=== PATIENT | male | born 1940 | race Caucasian/White ===

== ENCOUNTER 2016-12-27 23:32 | Inpatient (IN) | payer OTHER ==
[~2016-12-27] VITALS: Ht 165.1 cm; Wt 77.3 kg
[2016-12-27] MEDS ORDERED: SOD CHLORIDE 0.9% 500 ML IV STA (23:35)
[2016-12-27 23:43] VITALS: Ht 165.1 cm; Wt 77.3 kg
--- NOTE | 2016-12-27 23:58 | RADRPT ---
PROCEDURE: CT Brain without contrast. CLINICAL INDICATION: Code stroke with left-sided symptoms TECHNIQUE: A CT of the brain was performed on a multidetector CT scanner utilizing axial sections from the skull base through the vertex without contrast. Images were reviewed on a high-resolution [employer] workstation. Exam CTDI = 39.64 mGy and the DLP = 713.51 mGy-cm. One or more of the following dose reduction techniques were used: - Automated exposure control. - Adjustment of the mA and/or kV according to patient size. - Use of iterative reconstruction technique. COMPARISON: None available FINDINGS: Mild diffuse cerebral and cerebellar atrophy is present. There is proportionate dilatation of the v entricular system and sulci in a symmetric fashion. There is prominence of the extraaxial spaces sec ondary to atrophy. There is no evidence of intracranial hemorrhage, mass effect or midline shift. N o abnormal intra-axial or extra-axial fluid collections are seen. The sanchez/white matter differentia tion is preserved. Mild patchy diffuse deep white matter microangiopathic ischemic change is seen. Mucosal thickening in bilateral maxillary, sphenoid, frontal and ethmoid sinuses consistent with chr onic sinusitis. No skull fracture seen. Vascular calcifications are identified. There is the appea jossie of increased density in an approximate 1.2 mm long segment of the proximal right middle cerebr al artery suspicious for acute thrombus. IMPRESSION: Suspicious for acute thrombus in right middle cerebral artery. No acute bleed. Critical result discu ssed with Dr. Wells at 11:51 p.m. on 12/27/2016. RPTAT: HJES .Sam Cruz MD, MD Date Time Electronically viewed and signed by .Sam Cruz MD, MD on 12/27/2016 23:57 .S/
[2016-12-28] VITALS (15 sets, daily range): BP systolic 144–192; BP diastolic 57–88; PULSE 99–121; RESP 15–24; TEMP 97.6
[2016-12-28 00:14] LABS: ADD SCAN DIFF NO
[2016-12-28 00:19] LABS: BASOPHILS % 0.3 % (0.0-2.0); EOSINOPHILS # 0.2 10^3/ul (0.0-0.5); EOSINOPHILS % 1.7 % (0.0-7.0); HEMATOCRIT 46.2 % (42.0-52.0); HEMOGLOBIN 15.3 g/dl (14.0-18.0); LYMPHOCYTES # 2.8 10^3/ul (0.8-2.9); LYMPHOCYTES % 26.1 % (15.0-51.0); MEAN CORPUSCULAR HEMOGLOBIN 29.9 pg (29.0-33.0); MEAN CORPUSCULAR HGB CONC 33.1 g/dl (32.0-37.0); MEAN CORPUSCULAR VOLUME 90.4 fl (82.0-101.0); MEAN PLATELET VOLUME 11.3 fl (7.4-10.4); MONOCYTE # 0.6 10^3/ul (0.3-0.9); NEUTROPHILS % 65.6 % (39.0-77.0); PLATELET COUNT 301 10^3/UL (140-415); RED BLOOD COUNT 5.11 10^6/ul (4.70-6.10); WHITE BLOOD COUNT 10.6 10^3/ul (4.8-10.8)
[2016-12-28] MEDS ORDERED: SOD CHLORIDE 0.9% 100 ML ONE (00:19)
[2016-12-28] MEDS ORDERED: IOHEXOL 300MG/ML 150 ML BTL ONE (00:19)
--- NOTE | 2016-12-28 00:20 | RADRPT ---
PROCEDURE: XR Chest. CLINICAL INDICATION: Possible Stroke TECHNIQUE: Single frontal chest x-ray. COMPARISON: None. FINDINGS: There is minimal prominence of the lung interstitium likely minimal chronic changes. The heart is no t enlarged. Degenerative changes in thoracic spine and right acromioclavicular joint. ECG leads pr ojected over the chest. Linear atelectasis/fibrosis at lung bases. The patient is mildly rotated to the left. IMPRESSION: 1. There is no acute cardiopulmonary process. RPTAT: HJES .Sam Cruz MD, MD Date Time Electronically viewed and signed by .Sam Cruz MD, MD on 12/28/2016 00:20 .S/
[2016-12-28 00:28] LABS: INR 0.94; PROTIME 12.6 Sec (12.2-14.2)
[2016-12-28 00:29] LABS: PARTIAL THROMBOPLASTIN TIME 30.3 Sec (25.0-35.0)
[2016-12-28] MEDS ORDERED: hydrALAzine 20 MG INJ IV ONE ×2 (00:30)
[2016-12-28] MEDS ORDERED: SOD CHLORIDE 0.9% 50 ML IV ONE (00:30)
[2016-12-28] MEDS ORDERED: ALTEPLASE 100 MG INJ IV* ONE (00:30)
[2016-12-28] MEDS ORDERED: ALTEPLASE (tPA) 1 MG/ML BOLUS SYG IV* ONE (00:30)
[2016-12-28 00:33] LABS: ALBUMIN 4.6 g/dl (3.3-4.9); CHLORIDE 101 mmol/L (97-110)
[2016-12-28 00:34] LABS: POTASSIUM 4.2 mmol/L (3.5-5.1); SODIUM 142 mmol/L (135-144)
[2016-12-28 00:36] LABS: ALBUMIN/GLOBULIN RATIO 1.31; ANION GAP 17 (8-16); ASPARTATE AMINO TRANSFERASE 34 IU/L (15-46); BILIRUBIN,INDIRECT 0.2 mg/dl (0-1.1); BILIRUBIN,TOTAL 0.2 mg/dl (0.2-1.3); CARBON DIOXIDE 28 mmol/L (21-31); CREATININE 0.66 mg/dl (0.61-1.24); TOTAL PROTEIN 8.1 g/dl (6.1-8.1)
[2016-12-28 00:37] LABS: ALANINE AMINOTRANSFERASE 31 IU/L (13-69); ALKALINE PHOSPHATASE 87 IU/L (42-121); BLOOD UREA NITROGEN 15 mg/dl (7-20); CALCIUM 9.6 mg/dl (8.4-10.2); GLUCOSE 124 mg/dl (70-220)
[2016-12-28 01:00] LABS: TROPONIN-I < 0.012 ng/ml (0.00-0.12)
[2016-12-28] MEDS ORDERED: ONDANSETRON 4 MG INJ IV STA ×2 (01:02→01:21)
[2016-12-28] MEDS ORDERED: ONDANSETRON 4 MG INJ ONE (01:03)
[2016-12-28] MEDS ORDERED: METOCLOPRAMIDE 10 MG INJ IV ONE (01:30)
[2016-12-28 02:55] LABS: ADD UMIC YES; URINE BILIRUBIN (Dip) NEGATIVE (NEGATIVE); URINE BLOOD (Dip) NEGATIVE (NEGATIVE); URINE COLOR YELLOW (YELLOW); URINE GLUCOSE (Dip) NEGATIVE (NEGATIVE); URINE KETONES (Dip) 15 (NEGATIVE); URINE LEUKOCYTE ESTERASE (Dip) NEGATIVE (NEGATIVE); URINE NITRITE (Dip) NEGATIVE (NEGATIVE); URINE TOTAL PROTEIN (Dip) TRACE (NEGATIVE); URINE UROBILINOGEN (Dip) 0.2 E.U./dL (0.1-1.0)
--- NOTE | 2016-12-28 03:05 | EN ---
Date/Time of Note Date/Time of Note DATE: 12/28/16 TIME: 03:[address] angiogram head and neck. His been delayed multiple times. The radiology technicians were made aware both by myself and the ER staff Court multiple times Time sensitive matter. According to andreea, axial views and reformatted views were not sent to the radiologist. Again the technologist was made aware of this and was told to call directly HANNAH BOLANOS Dec 28, 2016 03:05
[2016-12-28 03:10] LABS: SQUAMOUS EPITHELIAL CELL,UR MODERATE; URINE RBCS 0-2 /HPF (0)
[2016-12-28 03:11] LABS: BACTERIA,URINE OCCASIONAL; MUCUS,URINE FEW
[2016-12-28] MEDS ORDERED: LABETALOL HCL 20MG INJ IV ONE (03:30)
[2016-12-28 03:37] LABS: BARBITURATES Negative (NEGATIVE); BENZODIAZEPINES Negative (NEGATIVE); CANNABINOIDS Negative (NEGATIVE); COCAINE Negative (NEGATIVE); OPIATES Negative (NEGATIVE)
--- NOTE | 2016-12-28 04:42 | RADRPT ---
PROCEDURE: CTA head and neck. CLINICAL INDICATION: Acute right MCA stroke TECHNIQUE: Thin section spiral CT images through the vasculature of the head and neck during injec tion of 185 cc of Omnipaque-300 contrast material. The study had to be repeated once due to an adeq uate bolus on the initial attempt. Some contrast leakage also occurred during the initial study and the total dose delivered is likely slightly less than stated. Coronal and sagittal as well as maxim al intensity projection reformations were obtained. The images were reviewed on a PACS workstation. Stenoses were measured using NASCET criteria where appropriate. The administered radiation dose is C TDI 42.07, DLP 2070.87. One or more of the following dose reduction techniques were used: automated exposure control, adjustment of the mA and/or kV according to patient size, or use of iterative rec onstruction technique. COMPARISON: No prior studies are available for comparison. FINDINGS: CTA Neck: There is atherosclerotic change of the aortic arch. There is intimal medial thickening of both common carotid arteries with moderate predominately calcified plaque of both carotid bulbs. T here is complete occlusion of the right internal carotid artery at its origin with slight retrograde filling at the level of the cavernous carotid artery. There is stenosis of the proximal left ICA w ith diameter as little as 1.7 mm. Reference ICA diameter is 3.4 mm. This is consistent with a 50% stenosis. The mid and distal left internal carotid artery are slightly small in caliber but patent. There is atherosclerotic change of the intracranial left ICA with multiple areas of stenosis less than 50%. The vertebral arteries are patent and codominant. Small right thyroid nodule or cyst. Sc arring of the lung apices. Degenerative change of the spine. CTA Head: As mentioned above, the intracranial right internal carotid artery is occluded with recon stitution in the cavernous portion. There is then thrombus seen in the distal - most right ICA with extension into the right M1 segment which is consistent with the hyperdense thrombus seen on CT. A small amount of flow is seen in the distal right MCA branches, likely collateral. The anterior cer ebral arteries, left MCA, and the posterior cerebral arteries are patent. No definite aneurysm is s een. There is a suggestion of some sulcal effacement of the right hemisphere suggesting evolving MC A infarct. Ventricular dilatation is again seen. There is mucoperiosteal thickening and fluid thro ughout the paranasal sinuses, particular the ethmoids. IMPRESSION: Acute thrombosis of the right MCA with evolving infarct. Complete occlusion of the right internal c arotid artery which may be acute or older. Diffuse atherosclerotic change. 50% stenosis of the left ICA. Results were called to Kali Bae at 12/28/2016 4:27 AM RPTAT: HLBE Maggy Farah, Physician Date Time Electronically viewed and signed by Maggy Farah, Physician on 12/28/2016 04:42 LE/
--- NOTE | 2016-12-28 05:11 | ERA ---
ER Documentation Chief Complaint Date/Time DATE: 12/28/16 TIME: 05:08 Chief Complaint sudden onset weakness to left side, facial drop to left side of face. HPI This is a 76 year male with sudden onset of weakness to his left side with facial the left side of his face approximately 10 minutes prior to arrival here at [facility]. EMS said the patient fell out of bed complaints. Last seen normal 20 minutes prior to calling 911. Upon arrival code stroke was immediately called the patient was immediately taken to CT. Telemetry neurology was also consulted immediately. ROS All systems reviewed and are negative except as per history of present illness. PMhx/Soc Medical and Surgical Hx: pt denies Medical Hx, pt denies Surgical Hx Hx Alcohol Use: Yes (everyday) Hx Substance Use: No Hx Tobacco Use: No Smoking Status: Never smoker Physical Exam Vitals Vital Signs Date Time Temp Pulse Resp B/P Pulse Ox O2 Delivery O2 Flow Rate FiO2 12/28/16 04:30 98 19 154/67 98 12/28/16 04:00 104 23 166/67 94 12/28/16 03:31 100 2.0 12/28/16 03:30 126 26 186/87 98 12/28/16 03:01 137 21 218/91 97 12/28/16 02:43 134 25 168/96 99 12/28/16 02:21 98.1 12/28/16 02:13 122 27 163/63 99 12/28/16 01:58 120 24 163/66 100 12/28/16 01:43 138 25 182/80 100 12/28/16 01:28 120 23 179/62 100 12/28/16 01:13 117 23 167/72 99 12/28/16 00:58 124 27 173/98 94 12/28/16 00:43 115 27 157/91 99 12/28/16 00:33 120 16 175/92 100 Nasal Cannula 12/28/16 00:28 120 26 175/92 100 12/28/16 00:25 135 16 174/72 100 Nasal Cannula 3.0 12/28/16 00:21 141 23 194/83 100 Nasal Cannula 12/28/16 00:15 135 26 198/93 100 Nasal Cannula 12/28/16 00:11 117 25 240/94 100 Room Air 12/27/16 23:59 106 18 227/88 100 Nasal Cannula 12/27/16 23:43 Nasal Cannula 2 12/27/16 23:43 104 18 235/99 100 12/27/16 23:43 Nasal Cannula 2.0 Physical Exam Const: [] Head: Atraumatic Eyes: Normal Conjunctiva ENT: Normal External Ears, Nose and Mouth. Neck: Full range of motion..~ No meningismus. Resp: Clear to auscultation bilaterally Cardio: Regular rate and rhythm, no murmurs Abd: Soft, non tender, non distended. Normal bowel sounds Skin: No petechiae or rashes Back: No midline or flank tenderness Ext: No cyanosis, or edema Neur: Awake and alert Psych: Normal Mood and Affect Result Diagram: 12/27/16 2337 12/27/16 2337 Results 24 hrs Laboratory Tests Test 12/27/16 23:37 12/28/16 01:21 12/28/16 02:59 Activated Partial Thromboplast Time 30.3Sec Alanine Aminotransferase (ALT/SGPT) 31IU/L Albumin 4.6g/dl Albumin/Globulin Ratio 1.31 Alkaline Phosphatase 87IU/L Anion Gap 17 Aspartate Amino Transf (AST/SGOT) 34IU/L Basophils # 0.010^3/ul Basophils % 0.3% Blood Urea Nitrogen 15mg/dl Calcium Level 9.6mg/dl Carbon Dioxide Level 28mmol/L Chloride Level 101mmol/L Creatinine 0.66mg/dl Direct Bilirubin 0.00mg/dl Eosinophils # 0.210^3/ul Eosinophils % 1.7% Globulin 3.50g/dl Glucose Level 124mg/dl Hematocrit 46.2% Hemoglobin 15.3g/dl Hemoglobin A1c 5.8% INR International Normalized Ratio 0.94 Indirect Bilirubin 0.2mg/dl Lymphocytes # 2.810^3/ul Lymphocytes % 26.1% Mean Corpuscular Hemoglobin 29.9pg Mean Corpuscular Hemoglobin Concent 33.1g/dl Mean Corpuscular Volume 90.4fl Mean Platelet Volume 11.3fl Monocytes # 0.610^3/ul Monocytes % 6.0% Neutrophils # 7.010^3/ul Neutrophils % 65.6% Nucleated Red Blood Cells # 0.010^3/ul Nucleated Red Blood Cells % 0.0/100WBC Platelet Count 66003^3/UL Potassium Level 4.2mmol/L Prothrombin Time 12.6Sec Prothrombin Time Ratio 1.0 Red Blood Count 5.1110^6/ul Red Cell Distribution Width 12.0% Sodium Level 142mmol/L Total Bilirubin 0.2mg/dl Total Protein 8.1g/dl Troponin I < 0.012ng/ml White Blood Count 10.610^3/ul Urine Amphetamines Screen Negative Urine Bacteria OCCASIONAL Urine Barbiturates Negative Urine Benzodiazepines Screen Negative Urine Bilirubin NEGATIVE Urine Cannabinoids Negative Urine Clarity CLEAR Urine Cocaine Screen Negative Urine Color YELLOW Urine Glucose NEGATIVE% Urine Hemoglobin NEGATIVE Urine Ketones 15 Urine Leukocyte Esterase NEGATIVE Urine Microscopic RBC 0-2/HPF Urine Microscopic WBC 0-2/HPF Urine Mucus FEW Urine Nitrite NEGATIVE Urine Opiates Screen Negative Urine Specific [place] 1.025 Urine Squamous Epithelial Cells MODERATE Urine Total Protein TRACE Urine Urobilinogen 0.2 E.U./dL Urine pH 6.0 Bedside Glucose 158mg/dL Current Medications Medications (Trade) Dose Ordered Sig/Thad Route PRN Reason Start Time Stop Time Status Last Admin Dose Admin Sodium Chloride (NS) 500 ml @ 500 mls/hr Q1H STAT IV 12/27/16 23:35 12/28/16 00:34 DC 12/27/16 23:44 Alteplase, Recombinant (Activase) 7 mg BOLUS OVER 1 MIN ONCE IV* 12/28/16 00:30 12/28/16 00:31 DC 12/28/16 00:26 Alteplase, Recombinant 62.6 mg 62.6 mg ISCHEMIC STROKE ONCE IV* 12/28/16 00:30 12/28/16 00:31 DC 12/28/16 00:27 Sodium Chloride (NS) 50 ml @ 0 mls/hr FLUSH AFTER TPA ONCE IV 12/28/16 00:30 12/28/16 00:31 DC 12/28/16 01:25 Hydralazine HCl (Apresoline) 20 mg ONCE ONCE IV 12/28/16 00:30 12/28/16 00:31 DC 12/28/16 00:08 Hydralazine HCl 20 mg 20 mg ONCE ONCE IV 12/28/16 00:30 12/28/16 00:31 DC 12/28/16 00:28 Sodium Chloride (NS) 100 ml @ ud STK-MED ONCE .ROUTE 12/28/16 00:19 12/28/16 00:20 DC 12/28/16 00:19 Iohexol (Omnipaque 300mg/ ml) 150 ml STK-MED ONCE .ROUTE 12/28/16 00:19 12/28/16 00:20 DC 12/28/16 00:19 Ondansetron HCl (Zofran Inj) 4 mg ONCE STAT IV 12/28/16 01:02 12/28/16 01:03 DC 12/28/16 01:06 Ondansetron HCl (Zofran Inj) 4 mg STK-MED ONCE .ROUTE 12/28/16 01:03 12/28/16 01:04 DC Metoclopramide HCl (Reglan) 10 mg ONCE ONCE IV 12/28/16 01:30 12/28/16 01:31 DC 12/28/16 01:25 Ondansetron HCl (Zofran Inj) 4 mg ONCE STAT IV 12/28/16 01:21 12/28/16 01:22 DC 12/28/16 01:22 Labetalol HCl (Labetalol) 20 mg ONCE ONCE IV 12/28/16 03:30 12/28/16 03:31 DC 12/28/16 03:09 Procedures/MDM Emergency Department was continued. After code stroke was called telemetry neurology evaluated the patient. Recommended TPA. TPA infusion started immediately. Recommended CT angios with the head of the neck. Multiple delays were noted in this CT angios is a patient was actively vomiting. Patient's did get CT angiogram but contrast was injected through intravenous access and have making and a nondiagnostic CT. A second CT was ordered and completed. Showed evolving right MCA stroke. Interventional neurology at [facility] called. Recommended no intervention given the fact this evolving stroke. Recommended medical therapy. Patient to will be admitted to intensive care unit to the hospitalist. EKG: Rate/Rhythm: Normal Sinus Rhythm QRS, ST, T-waves: No changes consistent w/ acute ischemia Impression: No evidence of ischemia or arrhythmia Chest X-ray 1V Interpreted by me: Soft Tissue: No acute abnormalities Bones: No acute abnormalities Mediastinum/Cardiac Silhouette/Lungs: No acute abnormalities Patient's neurologic symptoms are concerning for acute TIA/stroke, infectious, or metabolic cause and will require inpatient workup and continuous monitoring. Further w/u for will be deferred to the inpatient team. Neuro Critical Care: Critical Care Time: 75 minutes minutes Treatments/Evaluations: Continuous neurologic and cardiovascular monitoring for deterioration of neurologic function and complications, while obtaining immediate neurologic imaging. Considerations made for TPA and invasive therapy with discussions with family. TPA Criteria Assessment: Patient eligible for TPA. Started on bolus and then continuous infusion. Improvement noted post TPA infusion Accepting Care Team: Current data and ongoing care discussed. Time: 5 AM Primary Provider: Hospitalist Consulting: [[place]] Outstanding Data: none Departure Diagnosis: Primary Impression: Acute CVA (cerebrovascular accident) Condition: Critical HANNAH BOLANOS Dec 28, 2016 05:11
[2016-12-28] MEDS ORDERED: NACL 0.9% 3 ML SYG IV SCH (05:30)
[2016-12-28] MEDS ORDERED: morphine 2 MG INJ IV PRN (05:30)
[2016-12-28] MEDS ORDERED: MAGNESIUM HYDROXIDE 30ML CUP PO PRN (05:30)
[2016-12-28] MEDS ORDERED: ONDANSETRON 4 MG INJ IV PRN (05:30)
[2016-12-28] MEDS ORDERED: HYDROCODONE/APAP (5/325) TAB PO PRN (05:30)
[2016-12-28] MEDS ORDERED: ALBUTEROL/IPRATROPIUM (NEB) 3 ML AMP HHN PRN (05:30)
[2016-12-28] MEDS ORDERED: DOCUSATE SODIUM 100 MG CAP PO PRN (05:30)
[2016-12-28] MEDS ORDERED: NA PHOSPHATE/BIPHOS 133 ML ENEMA PR PRN (05:30)
[2016-12-28] MEDS ORDERED: LORAZEPAM 2 MG INJ IV PRN (05:30)
[2016-12-28] MEDS ORDERED: NITROGLYCERIN (SL) 0.4 MG TAB SL PRN (05:30)
[2016-12-28] MEDS ORDERED: ACETAMINOPHEN 325 MG TAB PO PRN ×2 (05:30)
[2016-12-28] MEDS: ATORVASTATIN 80 MG TAB PO SCH ×2 (06:30→20:53)
[2016-12-28] MEDS: hydrALAzine 20 MG INJ IV PRN ×3 (06:46→20:48)
[2016-12-28 07:25] LABS: ADD UMIC YES; URINE BILIRUBIN (Dip) NEGATIVE (NEGATIVE); URINE BLOOD (Dip) TRACE (NEGATIVE); URINE COLOR LT. YELLOW (YELLOW); URINE KETONES (Dip) TRACE (NEGATIVE); URINE LEUKOCYTE ESTERASE (Dip) NEGATIVE (NEGATIVE); URINE NITRITE (Dip) NEGATIVE (NEGATIVE); URINE TOTAL PROTEIN (Dip) NEGATIVE (NEGATIVE); URINE UROBILINOGEN (Dip) 0.2 E.U./dL (0.1-1.0)
--- NOTE | 2016-12-28 07:25 | HP ---
DATE OF ADMISSION: 12/27/2016 CHIEF COMPLAINT: Left-sided weakness and elevated blood pressure. HISTORY OF PRESENT ILLNESS: A 76-year-old male with past medical history of essential hypertension who presented with sudden onset weakness to the left side and also facial droop to the left side of his face. Symptoms occurred about 10 to 20 minutes prior to admission. EMS brought him to the ER. Teleneurologist was called immediately and the patient was considered to be inside the window as th ere were signs of acute stroke and he was given t-PA. He had a brain CT scan performed as well that showed an acute thrombus in the right middle cerebral artery thrombosis. No acute bleed. He has h ad a neck CTA performed as well that showed acute complete occlusion of the right internal carotid a rtery and a 50% stenosis of the left ICA. There was an attempt by the ER staff to try to transfer t he patient to [facility] for a thrombectomy but he was considered be outside the window for that. No feve rs or chills. No upper or lower GI bleeding. PAST MEDICAL HISTORY: As stated above. ALLERGIES: UNKNOWN. HOME MEDICATIONS: None. PAST SURGICAL HISTORY: None. FAMILY HISTORY: Noncontributory. SOCIAL HISTORY: Negative for smoking or IV drug abuse. He does drink scotch daily for many years. PHYSICAL EXAMINATION VITAL SIGNS: Blood pressure 227/88, presently it is 163/73, respirations 19 to 24, saturating at 97 % on 2 liters nasal cannula. Afebrile. GENERAL: The patient is lying in bed, alert, in mild distress. at the bedside. HEENT: He has got left-sided facial droop. Pupils otherwise equal, round, react to light. Extraoc ular muscles intact. NECK: Supple, no thyromegaly. LUNGS: Clear to auscultation bilaterally. CARDIOVASCULAR: S1, S2 heard. No rubs or gallops. ABDOMEN: Soft, nontender, nondistended. Normal bowel sounds. No rebound or guarding. MUSCULOSKELETAL: No lower extremity edema bilaterally. NEUROLOGIC: 0/5 strength in left upper and left lower extremities. There is left-sided facial droo p. Right side has 5/5 strength in right upper and right lower extremities. He has got some tremors on the right side as well. Appears somewhat agitated but is alert. Gait was not assessed. LABORATORY DATA: CBC is completely normal. Comprehensive metabolic panel is normal. Troponin is n egative x1. A1c is 5.8. U-tox is negative. UA negative nitrites, negative leukocyte esterase. Co ags are negative. Again, we mentioned the head CT and neck CTA results above as mentioned in the HP I. chest x-ray: No acute cardiopulmonary process. ASSESSMENT AND PLAN: A 76-year-old male coming in with acute left-sided symptoms with right middle cerebral artery stroke and right carotid 100% occlusion, status post t-PA. 1. Left-sided weakness symptoms secondary to acute stroke. Again, the patient will be transferred to Intensive Care Unit. He is on t-PA. Will put him on hydralazine 10 mg IV q.4 hours p.r.n. systo lic greater than 160, ideally want keep the blood pressure less than the 160 range. Will get neurol ogy consult as well. Continue neuro checks every 4 hours, high dose Lipitor. No aspirin for at terra st the first 24 hours after t-PA administered so no aspirin for now. Get physical therapy and occup ational therapy consults and speech therapy consult as well. 2. Hypertension. Again, see #1 for blood pressure control. If need be, we will start Cardene drip , right now the blood pressure seems to be under control with the p.r.n. hydralazine. 3. Gastrointestinal prophylaxis. H2 kathe. 4. Deep venous thrombosis prophylaxis. Again, sequential depression devices. No anticoagulants si nce he has already gotten t-PA and monitor for any signs of any bleeding, there are none presently. Again, physical therapy and occupational therapy consults. TSH, A1c and lipid panel. Dictated By: BRITTANY PRICE Conf#: [id number] DID#: [id number]
[2016-12-28] MEDS ORDERED: GLUCOSE GEL 15 GRAM TUBE BUCCAL PRN (07:30)
[2016-12-28] MEDS ORDERED: GLUCOSE GEL 15 GRAM TUBE PO PRN ×2 (07:30)
[2016-12-28] MEDS ORDERED: GLUCAGON 1 MG INJ IM PRN (07:30)
[2016-12-28] MEDS ORDERED: DEXTROSE 50% 50 ML SYRINGE IV PRN ×2 (07:30)
[2016-12-28 07:38] LABS: URINE RBCS 0-2 /HPF (0)
[2016-12-28] MEDS: DOCUSATE SODIUM 100 MG CAP PO SCH ×2 (08:32→20:53)
[2016-12-28] MEDS ORDERED: DOCUSATE SODIUM 100 MG CAP PO SCH (09:00)
[2016-12-28] MEDS: INSULIN ASPART [NOVOLOG] 3 ML PEN SC SCH ×4 (09:00→20:53)
--- NOTE | 2016-12-28 10:20 | RADRPT ---
PROCEDURE: MRI Brain without contrast. CLINICAL INDICATION: Stroke. Right middle cerebral artery territory infarct. TECHNIQUE: Routine MRI of the brain performed without intravenous contrast. COMPARISON: CT brain 12/27/2016, 12/28/2016 FINDINGS: Acute infarction is evident throughout the right middle cerebral artery territory corresponding to t he areas of lack of enhancement seen on the prior CT angiogram of the intracranial circulation. Aff ected territories include the right frontal lobe, right parietal lobe, right temporal lobe, and righ t basal ganglia. There is mild mass effect within the ischemic territory which minimally effaces th e involved sulci without midline shift or herniation. No evidence of intracranial hemorrhage. No evidence for remote blood degradation products. Mild central parenchymal volume loss is evident. The ventricles and sulci are concordant with parenchymal volume. Nonspecific small scattered areas of T2 and FLAIR signal hyperintensity measuring a few millimeters are seen in the supratentorial white matter most commonly due to chronic mild microvascular ischemic changes. Differential considerations include sequelae of migraines; prior parenchymal injury from i nfectious or inflammatory/demyelinating process; vasculopathy. Flow voids of the right middle cerebral artery territory are absent. Remaining central flow voids a re present suggesting patency; better evaluated on the recent CT angiogram of the intracranial circu lation. Minimal mucosal thickening of the paranasal sinuses. Minimal fluid within the left mastoid air cells. The calvarium is intact. The visualized extracranial soft tissues appear within normal limits. IMPRESSION: Acute ischemic changes involving the entire right middle cerebral artery territory compatible with t he distribution of infarction seen on the recent CT angiogram of the intracranial circulation. Within the non infarcted areas of brain are nonspecific small scattered areas of T2 and FLAIR signal hyperintensity measuring a few millimeters are seen in the supratentorial white matter most commonl y due to chronic mild microvascular ischemic changes. Differential considerations include sequelae o f migraines; prior parenchymal injury from infectious or inflammatory/demyelinating process; vasculo yonathan. RPTAT: AADD .Kali Jara MD, MD Date Time Electronically viewed and signed by .Kali Jara MD, on 12/28/2016 10:19 .B/
[2016-12-28] MEDS: FAMOTIDINE 20 MG INJ IV SCH ×2 (11:10→20:48)
--- NOTE | 2016-12-28 13:04 | CONS ---
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 Mechanism likely atheroembolic. -ICU admission planned maintain vital signs post IV tPA protocol SBP< 180/105, prefer labetalol prn for elevated blood pressures if HR permits -continue to hold antiplatelets, anticoagulation up to 24 hours -repeat [address] to evaluate for sign of hemorrhage, if no ICH may initiate ASA 300 mg HI and and pharmacologic DVT ppx if passes speech/swallow then ASA 81 mg -official speech/swallow evaluation -ECHO with bubble study -Lipitor 80 mg qhs when able to tolerate PO, pending results of LDL if LDL>100 qualifies for high intensity statin -MRI Brain results reviewed large Right MCA stroke involving superior and inferior division discussed results with and daughter at bedside -PT/OT -SCD -continue to monitor on telemetry for signs of atrial fibrillation -will continue to follow, please notify me for any change in neurologic status Problems: Consultation Date/Type/Reason Admit Date/Time 12/27/16 Date of Consultation: Dec 28, 2016 Type of Consultation: Neurology Reason for Consultation Right MCA stroke Referring Provider: BRITTANY RAMOS Hx of Present Illness 76 year old right handed [place] male with history of essential hypertension with poor medical follow up, previous history of smoking quit 20 years ago presenting with left sided hemiparesis. Patient had gone to bed in usual state of health around 9 pm last night, his heard noises coming from the room at 10:30pm, she found him in bed stating he needed to use the bathroom and slid out of bed with left sided hemiparesis. He presented within a 3 hour tPA window , with no contraindications for IV tPA, administered per recommend of tele neurologist. CTA Head/Neck showed Right carotid occlusion 100% with Right M1 occlusion, was out of window for thrombectomy planned for ICU admission. 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 independent in all AD[employer] driving Alcohol Use: other (daily 2 glasses of scotch) Smoking Status: Former smoker Exam/Review of Systems Vital Signs Vitals Vital Signs Date Time Temp Pulse Resp B/P Pulse Ox O2 Delivery O2 Flow Rate FiO2 12/28/16 12:00 96 20 152/69 97 12/28/16 03:31 2.0 12/28/16 02:21 98.1 12/28/16 00:33 Nasal Cannula Intake and Output 12/27/16 12/27/16 12/28/16 15:00 23:00 07:00 Output Total 400 ml Balance -400 ml Exam arousable to verbal stimuli responds verbally unable to open his eyes on command eyelid opening apraxia drowsy and requires repeat stimulation oriented to self, hospital and family members inattentive and unable to follow commands reliably CN: HEIDI eyes forced open unable to cross fully to left left UMN facial droop Motor: spontaneous movements right arm and leg anti-gravity intact strength 5/5 Left arm with increased tone and flexor posturing, no withdrawal to noxious Left leg with spontaneous anti-gravity movement 3/5 localizes to noxious stimuli applied to left arm and leg Sensory: localizes to noxious Reflexes: 2+ UE, LE left toe upgoing Results Result Diagram: 12/27/16 2337 12/27/16 2337 Results 24 hrs Laboratory Tests Test 12/27/16 23:37 12/28/16 01:21 12/28/16 02:59 12/28/16 06:00 Activated Partial Thromboplast Time 30.3 Alanine Aminotransferase (ALT/SGPT) 31 Albumin 4.6 Albumin/Globulin Ratio 1.31 Alkaline Phosphatase 87 Anion Gap 17 H Aspartate Amino Transf (AST/SGOT) 34 Basophils # 0.0 Basophils % 0.3 Blood Urea Nitrogen 15 Calcium Level 9.6 Carbon Dioxide Level 28 Chloride Level 101 Creatinine 0.66 Direct Bilirubin 0.00 Eosinophils # 0.2 Eosinophils % 1.7 Globulin 3.50 H Glucose Level 124 Hematocrit 46.2 Hemoglobin 15.3 Hemoglobin A1c 5.8 INR International Normalized Ratio 0.94 Indirect Bilirubin 0.2 Lymphocytes # 2.8 Lymphocytes % 26.1 Mean Corpuscular Hemoglobin 29.9 Mean Corpuscular Hemoglobin Concent 33.1 Mean Corpuscular Volume 90.4 Mean Platelet Volume 11.3 H Monocytes # 0.6 Monocytes % 6.0 Neutrophils # 7.0 Neutrophils % 65.6 Nucleated Red Blood Cells # 0.0 Nucleated Red Blood Cells % 0.0 Platelet Count 301 Potassium Level 4.2 Prothrombin Time 12.6 Prothrombin Time Ratio 1.0 Red Blood Count 5.11 Red Cell Distribution Width 12.0 Sodium Level 142 Total Bilirubin 0.2 Total Protein 8.1 Troponin I < 0.012 White Blood Count 10.6 Urine Amphetamines Screen Negative Urine Bacteria OCCASIONAL Urine Barbiturates Negative Urine Benzodiazepines Screen Negative Urine Bilirubin NEGATIVE Urine Cannabinoids Negative Urine Clarity CLEAR Urine Cocaine Screen Negative Urine Color YELLOW Urine Glucose NEGATIVE Urine Hemoglobin NEGATIVE Urine Ketones 15 Urine Leukocyte Esterase NEGATIVE Urine Microscopic RBC 0-2 Urine Microscopic WBC 0-2 Urine Mucus FEW Urine Nitrite NEGATIVE Urine Opiates Screen Negative Urine Specific [place] 1.025 Urine Squamous Epithelial Cells MODERATE Urine Total Protein TRACE Urine Urobilinogen 0.2 E.U./dL Urine pH 6.0 Bedside Glucose 158 Free Thyroxine 1.41 Test 12/28/16 06:50 12/28/16 10:20 Urine Bilirubin NEGATIVE Urine Clarity CLEAR Urine Color LT. YELLOW Urine Glucose 0.1% H Urine Hemoglobin TRACE Urine Ketones TRACE Urine Leukocyte Esterase NEGATIVE Urine Microscopic RBC 0-2 Urine Microscopic WBC NONE SEEN Urine Nitrite NEGATIVE Urine Specific [place] <=1.005 L Urine Total Protein NEGATIVE Urine Urobilinogen 0.2 E.U./dL Urine pH 7.0 Bedside Glucose 139 Medications Medications Current Medications Ondansetron HCl (Zofran Inj) 4 mg Q6H PRN IV NAUSEA AND/OR VOMITING; Start 12/28 at 05:30 Acetaminophen (Tylenol Tab) 650 mg Q6H PRN PO PAIN LEVEL 1-3 OR FEVER; Start at 05:30 Acetaminophen/ Hydrocodone Bitart ([place] (5/325)) 1 tab Q6H PRN PO MODERATE PAIN LEVEL 4-6; Start 12/28/16 at 05:30 Morphine Sulfate (morphine) 2 mg Q4H PRN IV SEVERE PAIN LEVEL 7-10 Last administered on 12/28/16t 11:10; Admin Dose 2 MG; Start 12/28/16 at 05:30 Docusate Sodium (Colace) 100 mg Q12H PRN PO CONSTIPATION; Start 12/28/16 at 05: 30 Magnesium Hydroxide (Milk Of Mag) 30 ml DAILY PRN PO CONSTIPATION; Start at 05:30 Sodium Biphosphate/ Sodium Phosphate (Fleet Enema) 133 ml DAILY PRN [place] CONSTIPATION; Start 12/28/16 at 05:30 Famotidine 20 mg 20 mg Q12 IV ; Start 12/28/16 at 09:00 Sodium Chloride (1/2 NS) 1,000 ml @ 75 mls/hr [id number] IV ; Start 12/28/16 at 05: 26 Lorazepam (Ativan) 0.5 mg Q6H PRN IV ANXIETY; Start 12/28/16 at 05:30 Hydralazine HCl (Apresoline) 10 mg Q4H PRN IV ELEVATED BLOOD PRESSURE Last administered on 12/28/16t 06:46; Admin Dose 10 MG; Start 12/28/16 at 05:30 Nitroglycerin (Nitroglycerin (Sl Tab) 0.4 Mg) 1 tab Q5M PRN SL ANGINA; Start at 05:30 Acetaminophen (Tylenol Tab) 650 mg Q4H PRN PO Temp greater than 99.6F; Start at 05:30 Insulin Aspart (Novolog Insulin Pen) NOVOLOG *MILD* ALGORI... Q4 SC ; Start 12/28 at 09:00 Atorvastatin Calcium (Lipitor) 80 mg HS PO ; Start 12/28/16 at 06:30 Miscellaneous Information 1 ea NOTE XX ; Start 12/28/16 at 07:30 Glucose (Glutose) 15 gm Q15M PRN PO DECREASED GLUCOSE; Start 12/28/16 at 07:30 Glucose (Glutose) 22.5 gm Q15M PRN PO DECREASED GLUCOSE; Start 12/28/16 at 07:30 Dextrose (D50w Syringe) 25 ml Q15M PRN IV DECREASED GLUCOSE; Start 12/28/16 at 07:30 Dextrose (D50w Syringe) 50 ml Q15M PRN IV DECREASED GLUCOSE; Start 12/28/16 at 07:30 Glucagon (Glucagen) 1 mg Q15M PRN IM DECREASED GLUCOSE; Start 12/28/16 at 07:30 Glucose (Glutose) 15 gm Q15M PRN BUCCAL DECREASED GLUCOSE; Start 12/28/16 at 07: 30 Docusate Sodium (Colace) 100 mg BID PO ; Start 12/28/16 at 09:00 DEONDRE MURGUIA MD Dec 28, 2016 12:57
--- NOTE | 2016-12-28 13:57 | RADRPT ---
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 Physician: BRITTANY RAMOS Quality: Technically Difficult Study Procedures: Transthoracic echocardiogram with complete 2D, M-Mode, and doppler examination. Indications: Cerebrovascular Accident. 2D/M Mode Doppler Measurement Value Normal Ranges Measurement Value Normal Ranges LVIDd 2D 3.8 3.5 - 5.6 cm AV Peak [place] 1.9 m/sec LVIDs 2D 2.6 2.1 - 4.1 cm AV Peak PG 15.0 mmHg FS 2D 29.8 % LVOT Peak Christian[place] 0.9 m/sec LVPWd 2D 1.2 0.6 - 1.1 cm LVOT Peak PG 3.0 mmHg IVSd 2D 1.2 0.6 - 1.1 cm MV E Peak Christian[place] 1.2 m/sec IVS/LVPW 2D 1.0 AoR Diam 2D 2.9 2.0 - 3.7 cm LA/Ao 2D 1 0 - 1 EDV 2D 53.2 cm3 ESV 2D 18.4 cm3 LA Dimen 2D 4.0 2.3 - 4.0 cm Findings Left Ventricle: Normal left ventricular systolic function. Normal left ventricular cavity size. Left ventricular wall thickness upper limits of normal. Ejection fraction is visually estimated at 55 %. Right Ventricle: Normal right ventricular size. Normal right ventricular systolic function. Left Atrium: The left atrium is normal in size. Right Atrium: The right atrium is normal in size. Mitral Valve: Mild mitral annular calcification. Trace mitral regurgitation. Aortic Valve: Aortic sclerosis without stenosis. Tricuspid Valve: Tricuspid valve not well visualized. There is trace tricuspid regurgitation. Pericardium: Normal pericardium with no significant pericardial effusion. Aorta: Normal aortic root. IVC: Normal size and normal respiratory collapse consistent with normal right atrial pressure. Conclusions 1.Normal left ventricular systolic function. Normal left ventricular cavity size. Left ventricular wall thickness upper limits of normal. Ejection fraction is visually estimated at 55 %. 2.The left atrium is normal in size. 3.Mild mitral annular calcification. Trace mitral regurgitation. 4.Aortic sclerosis without stenosis. 5.Tricuspid valve not well visualized. There is trace tricuspid regurgitation. 6.suboptimal study. Electronically Signed By: Chriss Gabriel 28-Dec-2016 13:56:08 -0800 Patient Name: LIAN MCCABE [place] Study Date: 28-Dec-[id number]
--- NOTE | 2016-12-28 14:33 | PN ---
Date/Time of Note Date/Time of Note DATE: 12/28/16 TIME: 14:28 Assessment/Plan VTE Prophylaxis VTE Prophylaxis Intervention: SCD's Lines/Catheters IV [facility] [place] Assessment/Plan Chief Complaint/Hosp Course ASSESSMENT AND PLAN: A 76-year-old male coming in with acute left-sided symptoms with right middle cerebral artery stroke and right carotid 100% occlusion, status post t-PA. 1. Left-sided weakness symptoms secondary to acute stroke. Admit to intensive Care Unit. Status post t-PA. Will put him on hydralazine 10 mg IV q.4 hours p.r.n. systolic greater than 160, ideally want keep the blood pressure less than the 160 range. Neurology and vascular surgeon has been consulted continue neuro checks every 4 hours, follow-up lipid panel, TSH No aspirin for at least the first 24 hours after t-PA administered so no aspirin for now. Get physical therapy and occupational therapy consults and speech therapy consult as well. 2. Hypertension. Status post Cardene drip, right now the blood pressure seems to be under control with the p.r.n. hydralazine. 3. Gastrointestinal prophylaxis. H2 kathe. 4. Deep venous thrombosis prophylaxis. Again, sequential depression devices. No anticoagulants since he has already gotten t-PA and monitor for any signs of any bleeding, there are none presently. We will continue monitor patient closely for recommendation management treatment as clinical course Problems: Subjective 24 Hr Interval Summary Free Text/Dictation No acute changes Patient continues to have left upper and left lower extremity weakness Speech impairment Awaiting for speech therapy for swallow eval Exam/Review of Systems Vital Signs Vitals Vital Signs Date Time Temp Pulse Resp B/P Pulse Ox O2 Delivery O2 Flow Rate FiO2 12/28/16 14:00 102 20 115/101 98 12/28/16 13:37 97.6 Nasal Cannula 4.0 Intake and Output 12/27/16 12/27/16 12/28/16 14:59 22:59 06:59 Output Total 400 ml Balance -400 ml Exam General: The patient is moderately overweight, speech impairment. HEENT: Atraumatic, normocephalic. The pupils are equal and round . Neck: Supple with full range of motion. Chest: Normal expansion of the thorax during inspiration Lungs: Clear to auscultation bilaterally Heart: Normal S1-S2, Regular rhythm and rate. Abdomen: Soft , nontender, nondistended , bowel sounds are present. Extremities: Right upper and lower extremity weakness3/5, no edema no cyanosis Neurologic: The patient is awake, able to follow commands Results Result Diagram: 12/27/16 2337 12/27/16 2337 Results 24 hrs Laboratory Tests Test 12/27/16 23:37 12/28/16 01:21 12/28/16 02:59 12/28/16 06:00 Activated Partial Thromboplast Time 30.3 Alanine Aminotransferase (ALT/SGPT) 31 Albumin 4.6 Albumin/Globulin Ratio 1.31 Alkaline Phosphatase 87 Anion Gap 17 H Aspartate Amino Transf (AST/SGOT) 34 Basophils # 0.0 Basophils % 0.3 Blood Urea Nitrogen 15 Calcium Level 9.6 Carbon Dioxide Level 28 Chloride Level 101 Creatinine 0.66 Direct Bilirubin 0.00 Eosinophils # 0.2 Eosinophils % 1.7 Globulin 3.50 H Glucose Level 124 Hematocrit 46.2 Hemoglobin 15.3 Hemoglobin A1c 5.8 INR International Normalized Ratio 0.94 Indirect Bilirubin 0.2 Lymphocytes # 2.8 Lymphocytes % 26.1 Mean Corpuscular Hemoglobin 29.9 Mean Corpuscular Hemoglobin Concent 33.1 Mean Corpuscular Volume 90.4 Mean Platelet Volume 11.3 H Monocytes # 0.6 Monocytes % 6.0 Neutrophils # 7.0 Neutrophils % 65.6 Nucleated Red Blood Cells # 0.0 Nucleated Red Blood Cells % 0.0 Platelet Count 301 Potassium Level 4.2 Prothrombin Time 12.6 Prothrombin Time Ratio 1.0 Red Blood Count 5.11 Red Cell Distribution Width 12.0 Sodium Level 142 Total Bilirubin 0.2 Total Protein 8.1 Troponin I < 0.012 White Blood Count 10.6 Urine Amphetamines Screen Negative Urine Bacteria OCCASIONAL Urine Barbiturates Negative Urine Benzodiazepines Screen Negative Urine Bilirubin NEGATIVE Urine Cannabinoids Negative Urine Clarity CLEAR Urine Cocaine Screen Negative Urine Color YELLOW Urine Glucose NEGATIVE Urine Hemoglobin NEGATIVE Urine Ketones 15 Urine Leukocyte Esterase NEGATIVE Urine Microscopic RBC 0-2 Urine Microscopic WBC 0-2 Urine Mucus FEW Urine Nitrite NEGATIVE Urine Opiates Screen Negative Urine Specific [place] 1.025 Urine Squamous Epithelial Cells MODERATE Urine Total Protein TRACE Urine Urobilinogen 0.2 E.U./dL Urine pH 6.0 Bedside Glucose 158 Free Thyroxine 1.41 Test 12/28/16 06:50 12/28/16 10:20 Urine Bilirubin NEGATIVE Urine Clarity CLEAR Urine Color LT. YELLOW Urine Glucose 0.1% H Urine Hemoglobin TRACE Urine Ketones TRACE Urine Leukocyte Esterase NEGATIVE Urine Microscopic RBC 0-2 Urine Microscopic WBC NONE SEEN Urine Nitrite NEGATIVE Urine Specific [place] <=1.005 L Urine Total Protein NEGATIVE Urine Urobilinogen 0.2 E.U./dL Urine pH 7.0 Bedside Glucose 139 Medications Medications Current Medications Ondansetron HCl (Zofran Inj) 4 mg Q6H PRN IV NAUSEA AND/OR VOMITING; Start 12/28 at 05:30 Acetaminophen (Tylenol Tab) 650 mg Q6H PRN PO PAIN LEVEL 1-3 OR FEVER; Start at 05:30 Acetaminophen/ Hydrocodone Bitart ([place] (5/325)) 1 tab Q6H PRN PO MODERATE PAIN LEVEL 4-6; Start 12/28/16 at 05:30 Morphine Sulfate (morphine) 2 mg Q4H PRN IV SEVERE PAIN LEVEL 7-10 Last administered on 12/28/16 11:10; Admin Dose 2 MG; Start 12/28/16 at 05:30 Docusate Sodium (Colace) 100 mg Q12H PRN PO CONSTIPATION; Start 12/28/16 at 05: 30 Magnesium Hydroxide (Milk Of Mag) 30 ml DAILY PRN PO CONSTIPATION; Start at 05:30 Sodium Biphosphate/ Sodium Phosphate (Fleet Enema) 133 ml DAILY PRN [place] CONSTIPATION; Start 12/28/16 at 05:30 Famotidine 20 mg 20 mg Q12 IV Last administered on 12/28/16 11:10; Admin Dose 20 MG; Start 12/28/16 at 09:00 Sodium Chloride (1/2 NS) 1,000 ml @ 75 mls/hr [id number] IV ; Start 12/28/16 at 05: 26 Hydralazine HCl (Apresoline) 10 mg Q4H PRN IV ELEVATED BLOOD PRESSURE Last administered on 12/28/16 06:46; Admin Dose 10 MG; Start 12/28/16 at 05:30 Nitroglycerin (Nitroglycerin (Sl Tab) 0.4 Mg) 1 tab Q5M PRN SL ANGINA; Start at 05:30 Acetaminophen (Tylenol Tab) 650 mg Q4H PRN PO Temp greater than 99.6F; Start at 05:30 Insulin Aspart (Novolog Insulin Pen) NOVOLOG *MILD* ALGORI... Q4 SC ; Start 12/28 at 09:00 Atorvastatin Calcium (Lipitor) 80 mg HS PO ; Start 12/28/16 at 06:30 Miscellaneous Information 1 ea NOTE XX ; Start 12/28/16 at 07:30 Glucose (Glutose) 15 gm Q15M PRN PO DECREASED GLUCOSE; Start 12/28/16 at 07:30 Glucose (Glutose) 22.5 gm Q15M PRN PO DECREASED GLUCOSE; Start 12/28/16 at 07:30 Dextrose (D50w Syringe) 25 ml Q15M PRN IV DECREASED GLUCOSE; Start 12/28/16 at 07:30 Dextrose (D50w Syringe) 50 ml Q15M PRN IV DECREASED GLUCOSE; Start 12/28/16 at 07:30 Glucagon (Glucagen) 1 mg Q15M PRN IM DECREASED GLUCOSE; Start 12/28/16 at 07:30 Glucose (Glutose) 15 gm Q15M PRN BUCCAL DECREASED GLUCOSE; Start 12/28/16 at 07: 30 Docusate Sodium (Colace) 100 mg BID PO ; Start 12/28/16 at 09:00 ISA CARROLL MD Dec 28, 2016 14:33
[2016-12-28] MEDS: SOD CHLORIDE 0.45% 1,000 ML IV SCH ×2 (15:00→18:33)
[2016-12-28] MEDS: METOPROLOL 5 MG INJ IV PRN ×2 (17:19→19:15)
--- NOTE | 2016-12-28 19:03 | CONS ---
DATE OF ADMISSION: 12/28/2016 DATE OF CONSULTATION: REASON FOR CONSULTATION: CVA. HISTORY OF PRESENT ILLNESS: This is a 76-year-old male admitted because of weakness in the left low er extremity. His workup included a CT of the brain, MRI of the brain, and CT angiogram of the neck , which was positive for acute thrombosis of the right middle cerebral artery and occlusion of the r ight internal carotid artery at the neck. The patient is now recovering from his CVA. PAST MEDICAL HISTORY: Significant for hypertension, hyperlipidemia. PAST SURGICAL HISTORY: None. ALLERGIES: NONE. SOCIAL HISTORY: No smoking, drinking, or drug use. PHYSICAL EXAMINATION: VITAL SIGNS: Blood pressure is 156/71, pulse is 100 to 120, respirations 18. HEENT: Normocephalic, atraumatic. PERRLA. NECK: Supple. No JVD, no carotid bruits. CARDIOVASCULAR: Regular rate and rhythm. Tachycardic. LUNGS: Clear. ABDOMEN: Soft. EXTREMITIES: Warm. The patient is very lethargic, can move right arm and right leg, cannot move th e left side. LABORATORY VALUES: White count 10.6, hemoglobin 15.3, platelet count 301. IMPRESSION: 1. Right internal carotid artery occlusion. 2. Acute cerebrovascular accident. RECOMMENDATIONS: Will plan for surgery at the present time. Would continue medical treatment. If no contraindication, would put the patient on heparin therapy. Dictated By: GERSON LEWIS MD FM/JAMIE Conf#: [id number] DID#: [id number] CC: CHRIS GUSMAN MD;*EndCC*
[2016-12-29] VITALS (28 sets, daily range): BP systolic 110–217; BP diastolic 52–136; PULSE 94–127; RESP 17–30
[2016-12-29] MEDS: INSULIN ASPART [NOVOLOG] 3 ML PEN SC SCH ×5 (00:40→17:00)
[2016-12-29 04:53] LABS: ADD SCAN DIFF NO
[2016-12-29 05:06] LABS: BASOPHILS % 0.1 % (0.0-2.0); EOSINOPHILS % 0.1 % (0.0-7.0); HEMATOCRIT 42.2 % (42.0-52.0); HEMOGLOBIN 14.1 g/dl (14.0-18.0); LYMPHOCYTES # 1.3 10^3/ul (0.8-2.9); MEAN CORPUSCULAR HEMOGLOBIN 29.9 pg (29.0-33.0); MEAN CORPUSCULAR HGB CONC 33.4 g/dl (32.0-37.0); MEAN CORPUSCULAR VOLUME 89.6 fl (82.0-101.0); MEAN PLATELET VOLUME 11.3 fl (7.4-10.4); MONOCYTE # 1.3 10^3/ul (0.3-0.9); MONOCYTES % 6.6 % (0.0-11.0); NEUTROPHIL # 16.5 10^3/ul (1.6-7.5); NEUTROPHILS % 85.5 % (39.0-77.0); PLATELET COUNT 352 10^3/UL (140-415); RED BLOOD COUNT 4.71 10^6/ul (4.70-6.10); RED CELL DISTRIBUTION WIDTH 12.7 % (11.5-14.5); WHITE BLOOD COUNT 19.3 10^3/ul (4.8-10.8)
[2016-12-29 05:41] LABS: POTASSIUM 4.3 mmol/L (3.5-5.1)
[2016-12-29 05:43] LABS: CREATININE 0.61 mg/dl (0.61-1.24)
[2016-12-29 05:44] LABS: CALCIUM 9.4 mg/dl (8.4-10.2); MAGNESIUM 1.9 mg/dl (1.7-2.5); PHOSPHORUS 2.5 mg/dl (2.5-4.9)
--- NOTE | 2016-12-29 06:28 | CONS ---
DATE OF ADMISSION: 12/28/2016 DATE OF CONSULTATION: 12/28/2016 REFERRING PHYSICIAN: . REASON FOR CONSULTATION: Hypertension. CHIEF COMPLAINT: Slurred speech and right-sided weakness. HISTORY OF PRESENT ILLNESS: Thank you for this referral. History obtained from the patient's , discussion with the staff, discussion with physicians, including discussion with the neurologist, Yohana Fischer. This is an unfortunate 76-year-old [place] gentleman with history of hyperten romulo, apparently has not been taking any medication, who presented with complaint of sudden on set of left-sided weakness and slurred speech and facial droop. Patient came to emergency room, was felt to be a candidate for TPA, and TPA has been given. The patient has been severely hypertensive and has been admitted to intensive care unit. Currently, is not able to provide any history to me. According to the , there is no report of chest pain or pressure. PAST MEDICAL HISTORY: Hypertension. ALLERGIES: NO REPORTED DRUG ALLERGIES. MEDICATIONS AT HOME: No active medications at home. FAMILY HISTORY: No reported early coronary artery disease. SOCIAL HISTORY: The patient has quit smoking many years ago. REVIEW OF SYSTEMS: Has been otherwise negative except for above-mentioned. PHYSICAL EXAMINATION: VITAL SIGNS: Temperature 97.8, heart rate of 103, blood pressure most recently after hydralazine gi lopez is 156/71, respiration rate of 17, saturating 98%. HEENT: Normocephalic, atraumatic. Pupils are equal. CARDIOVASCULAR: Regular rate and rhythm. Systolic murmur. PULMONARY: with no wheezes. GASTROINTESTINAL: Soft, nontender. EXTREMITIES: edema. NEUROLOGIC: Lethargic at this point. Had weakness on the left side noted. LABORATORY: WBC of 10.6, hemoglobin 15.3, platelet 301. Sodium 142, potassium 4.2, BUN of 15, crea tinine 0.66, glucose of 124. Troponin less than 0.012. Echocardiogram was personally reviewed, [facility] showed normal LV size and ejection fraction of about 55%. Borderline LVH. study, though. EKG shows sinus tachycardia. EKG by primary showed marked sinus tachycardia with nonspecific ST-T abnormality suggestive of ischemia. Brain MRI in the emergency room shows acute ischemic changes in volving the entire right middle cerebral artery territory, distribution of infarct seen on the recen t CT angiogram. Chest x-ray shows no acute cardiopulmonary disease. ASSESSMENT AND PLAN: 1. Acute cerebrovascular accident. 2. Carotid stenosis. 3. Hypertension urgency. 4. Rule out dyslipidemia. 5. Ex-smoker. 6. History of noncompliance with the medication. 7. Status post TPA treatment. RECOMMENDATIONS: Follow up neurology recommendations. Will place the patient on IV metoprolol p.r. n. Statins to be resumed started once the patient is able to tolerate p.o. medication. Antiplatele t probably tomorrow once okay from neurology standpoint. Will continue with the ICU care. More than 40 minutes of critical care time was spent in management of this patient, excluding any pr ocedures. Dictated By: DIANA BURDEN/JAMIE Conf#: [id number] DID#: [id number]
[2016-12-29 06:43] LABS: THYROID STIMULATING HORMONE 0.738 MIU/L (0.465-4.680)
[2016-12-29] MEDS: METOPROLOL 5 MG INJ IV PRN ×3 (07:17→18:10)
[2016-12-29] MEDS: SOD CHLORIDE 0.45% 1,000 ML IV SCH (07:30)
--- NOTE | 2016-12-29 08:34 | RADRPT ---
PROCEDURE: CT Brain without contrast. CLINICAL INDICATION: Right MCA stroke post IV tPA 24 hour scan TECHNIQUE: A CT of the brain was performed on a high-resolution CT scanner utilizing a low dose te chnique with axial imaging from the skull base through the vertex without IV contrast. Multiplanar reformatted images were made. Images were reviewed on a PACS workstation. The CTDIvol is 39.1 mGy and the DLP is 713.5 mGycm. One or more of the following dose reduction techniques were used: - Automated exposure control. - Adjustment of the mA and/or kV according to patient size. Use of iterative reconstruction technique. COMPARISON: MRI brain 12/28/2016. CT scan of the brain 12/27/2016. FINDINGS: The fourth ventricle is normal in size. The third and lateral ventricles are normal in size and con figuration. There is abnormal low attenuation in the cortex and white matter tracts of the right par ietal temporal and frontal lobes. There is abnormal attenuation in the right basal ganglia. There is cerebral and cerebellar atrophy. There is a hyperdense right middle cerebral artery. There is e nlarged sulcus in the medial left parafalcine area adjacent to the left frontal lobe. No intracran ial hemorrhages identified. There are chronic small vessel ischemic changes in the periventricular w kelton matter tracts adjacent to the left lateral ventricle. The visible portions of the globes and extraocular muscles are normal. There is fluid in the left sp henoid sinus and portions of the ethmoid air cells. IMPRESSION: 1. Right middle cerebral artery infarct with thrombosis of the proximal right middle cerebral arter y. Portions of the right frontal lobe, right temporal, right parietal and right basal ganglia areas are involved. Chronic small vessel ischemic changes in the periventricular white matter tracts adjac ent to the lateral ventricles. 2. No evidence of intracranial hemorrhage, transtentorial or subfalcine herniation. 3. Ethmoid and sphenoid sinusitis. RPTAT:AAJJ Physician Marianela Date Time Electronically viewed and signed by Physician Marianela on 12/29/2016 08:33 NATE
[2016-12-29] MEDS: FAMOTIDINE 20 MG INJ IV SCH (09:00)
[2016-12-29] MEDS: DOCUSATE SODIUM 100 MG CAP PO SCH (09:00)
--- NOTE | 2016-12-29 10:23 | PDOCDIS ---
Discharge Instructions CONDITION Patient Condition: Guarded HOME CARE INSTRUCTIONS: Special Diet: npo for now OTHER ORDERS: Other Orders: Transferred to [facility] acute setting ISA CARROLL MD Dec 29, 2016 10:23
[2016-12-29] MEDS ORDERED: FAMO20VI9 IV (10:30)
[2016-12-29] MEDS ORDERED: NIT4 SL (10:30)
[2016-12-29] MEDS ORDERED: METO5VIA28 IV (10:30)
[2016-12-29] MEDS ORDERED: DOCU-216 PO (10:30)
[2016-12-29] MEDS ORDERED: APRS IV (10:30)
[2016-12-29] MEDS ORDERED: HYDR-3498 PO (10:30)
[2016-12-29] MEDS ORDERED: ASPI-664 RECTAL (10:30)
[2016-12-29] MEDS ORDERED: ONDA4VIA2 IV (10:30)
[2016-12-29] MEDS ORDERED: ATOR80TA75 PO (10:30)
--- NOTE | 2016-12-29 10:43 | PN ---
DATE: 12/29/2016 CARDIOLOGY FOLLOWUP SUBJECTIVE: Discussed with the staff. Discussed with the patient's daughter. Discussed with the renuka rogel's . Rhythm strip was reviewed. The patient remains in sinus rhythm. The patient remain s nonverbal, does not answer questions. Intermittently hypertensive required to get p.r.n. medicati on/ MEDICATIONS: Reviewed as per medical reconciliation, personally reviewed. PHYSICAL EXAMINATION: VITAL SIGNS: Temperature 99.1, heart rate of 100, blood pressure 164/63, respiratory rate of 22, sa turating 99%. HEENT: Normocephalic, atraumatic. Pupils are equal. CARDIOVASCULAR: Regular rate and rhythm, systolic murmur. PULMONARY: With no wheezes anteriorly, mild rhonchi. GASTROINTESTINAL: Soft, nontender. EXTREMITIES: With no significant lower extremity edema. NEUROLOGIC: Does open his eyes. Does not appear to be moving his left extremity either lower or up per extremity. Moves right extremity. Does not verbalize. PSYCHIATRIC: Appears to be calm. LABORATORY DATA: WBC of 19.3, hemoglobin 14.1, platelets 352. Sodium 141, potassium 4.3, BUN of 16 , creatinine 0.61, glucose 146. Brain CT done this morning shows right middle cerebral artery infar ct with thrombosis of the proximal right middle cerebral artery, right frontal lobe, right tem poral, right parietal and right basal ganglia areas are involved. No evidence of bleed. ASSESSMENT AND PLAN: 1. 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 2. Carotid stenosis. 3. Hypertension. 4. Ex-smoker. 5. History of noncompliance with the medication. 6. Status post TPA treatment. RECOMMENDATIONS: We will continue with IV metoprolol as needed. Glucose management as per internal medicine. Follow up with neurology recommendations. Aspirin and antiplatelet started once okay fr om neurology standpoint. Continue with the ICU care. More than 3 minutes of critical care time was spent in management of this patient excluding any procedures. Dictated By: DIANA BURDEN/JAMIE Conf#: [id number] DID#: [id number]
[2016-12-29] MEDS ORDERED: CEFTRIAXONE 1 GM/50 ML (PMX) 50 ML IVPB SCH (11:00)
--- NOTE | 2016-12-29 12:14 | CONS ---
Date/Time of Note Date/Time of Note DATE: 12/29/16 TIME: 12:03 Consult Date/Type/Reason Admit Date/Time Dec 28, 2016 at 08:30 Initial Consult Date 12/28/16 Type of Consultation: Neurology Reason for Consultation Right MCA stroke with 100% Right ICA occlusion s/p IV tPA, out of window for thrombectomy Ordering Provider: BRITTANY RAMOS Subjective remains lethargic, but able to answer simple questions and commands eyelid opening apraxia unable to pass speech/swallow due to mental status at this time planned for NGT to administer BP meds Objective Vital Signs Date Time Temp Pulse Resp B/P Pulse Ox O2 Delivery O2 Flow Rate FiO2 12/29/16 08:00 100 12/29/16 07:15 Nasal Cannula 2.0 12/29/16 06:00 22 164/63 99 12/29/16 04:00 99.1 12/29/16 02:17 21 Intake and Output 12/28/16 12/28/16 12/29/16 15:00 23:00 07:00 Intake Total 525 ml 525 ml Output Total 300 ml 100 ml Balance -300 ml 525 ml 425 ml awake, with eyelid opening apraxia drowsy requires repeat stimulation to answer questions inattentive and unable to reliably follow commands CN: HEIDI, orthophoric gaze with decreased blink to threat unable to gaze left, left UMN facial droop Motor: left arm flexed position no withdrawal increased tone 0/5 strength left leg lifts anti-gravity to noxious, appears purposeful as he is able to cross his leg Sensory: localizes to noxious stimuli Results/Medications Result Diagram: 12/29/16 0420 12/29/16 0420 Results 24 hrs Laboratory Tests Test 12/28/16 17:12 12/28/16 20:47 12/29/16 00:37 12/29/16 04:20 Bedside Glucose 146 139 146 Anion Gap 20 H Basophils # 0.0 Basophils % 0.1 Blood Urea Nitrogen 16 Calcium Level 9.4 Carbon Dioxide Level 22 Chloride Level 103 Cholesterol Level 150 Cholesterol/HDL Ratio 3.0 Creatinine 0.61 Eosinophils # 0.0 Eosinophils % 0.1 Glucose Level 146 HDL Cholesterol 50 Hematocrit 42.2 Hemoglobin 14.1 LDL Cholesterol, Calculated 82 Lymphocytes # 1.3 Lymphocytes % 7.0 L Magnesium Level 1.9 Mean Corpuscular Hemoglobin 29.9 Mean Corpuscular Hemoglobin Concent 33.4 Mean Corpuscular Volume 89.6 Mean Platelet Volume 11.3 H Monocytes # 1.3 H Monocytes % 6.6 Neutrophils # 16.5 H Neutrophils % 85.5 H Nucleated Red Blood Cells # 0.0 Nucleated Red Blood Cells % 0.0 Phosphorus Level 2.5 Platelet Count 352 Potassium Level 4.3 Red Blood Count 4.71 Red Cell Distribution Width 12.7 Sodium Level 141 Thyroid Stimulating Hormone (TSH) 0.738 Triglycerides Level 92 White Blood Count 19.3 #H Test 12/29/16 05:11 Bedside Glucose 141 Medications Current Medications Ondansetron HCl (Zofran Inj) 4 mg Q6H PRN IV NAUSEA AND/OR VOMITING; Start 12/28 at 05:30 Acetaminophen (Tylenol Tab) 650 mg Q6H PRN PO PAIN LEVEL 1-3 OR FEVER; Start at 05:30 Acetaminophen/ Hydrocodone Bitart ([place] (5/325)) 1 tab Q6H PRN PO MODERATE PAIN LEVEL 4-6; Start 12/28/16 at 05:30 Morphine Sulfate (morphine) 2 mg Q4H PRN IV SEVERE PAIN LEVEL 7-10 Last administered on 12/28/16 11:10; Admin Dose 2 MG; Start 12/28/16 at 05:30 Docusate Sodium (Colace) 100 mg Q12H PRN PO CONSTIPATION; Start 12/28/16 at 05: 30 Magnesium Hydroxide (Milk Of Mag) 30 ml DAILY PRN PO CONSTIPATION; Start at 05:30 Sodium Biphosphate/ Sodium Phosphate (Fleet Enema) 133 ml DAILY PRN NE CONSTIPATION; Start 12/28/16 at 05:30 Famotidine 20 mg 20 mg Q12 IV Last administered on 12/29/16 09:00; Admin Dose 20 MG; Start 12/28/16 at 09:00 Sodium Chloride (1/2 NS) 1,000 ml @ 75 mls/hr [id number] IV Last administered on 12/29/16 07:30; Admin Dose 75 MLS/HR; Start 12/28/16 at 05:26 Hydralazine HCl (Apresoline) 10 mg Q4H PRN IV ELEVATED BLOOD PRESSURE Last administered on 12/28/16 20:48; Admin Dose 10 MG; Start 12/28/16 at 05:30 Nitroglycerin (Nitroglycerin (Sl Tab) 0.4 Mg) 1 tab Q5M PRN SL ANGINA; Start at 05:30 Acetaminophen (Tylenol Tab) 650 mg Q4H PRN PO Temp greater than 99.6F; Start at 05:30 Insulin Aspart (Novolog Insulin Pen) NOVOLOG *MILD* ALGORI... Q4 SC Last administered on 12/29/16 05:14; Admin Dose 1 UNIT; Start 12/28/16 at 09:00 Atorvastatin Calcium (Lipitor) 80 mg HS PO ; Start 12/28/16 at 06:30 Miscellaneous Information 1 ea NOTE XX ; Start 12/28/16 at 07:30 Glucose (Glutose) 15 gm Q15M PRN PO DECREASED GLUCOSE; Start 12/28/16 at 07:30 Glucose (Glutose) 22.5 gm Q15M PRN PO DECREASED GLUCOSE; Start 12/28/16 at 07:30 Dextrose (D50w Syringe) 25 ml Q15M PRN IV DECREASED GLUCOSE; Start 12/28/16 at 07:30 Dextrose (D50w Syringe) 50 ml Q15M PRN IV DECREASED GLUCOSE; Start 12/28/16 at 07:30 Glucagon (Glucagen) 1 mg Q15M PRN IM DECREASED GLUCOSE; Start 12/28/16 at 07:30 Glucose (Glutose) 15 gm Q15M PRN BUCCAL DECREASED GLUCOSE; Start 12/28/16 at 07: 30 Docusate Sodium (Colace) 100 mg BID PO ; Start 12/28/16 at 09:00 Metoprolol Tartrate 2.5 mg 2.5 mg Q1H PRN IV SBP > 180 Last administered on 12/29 10:04; Admin Dose 2.5 MG; Start 12/28/16 at 15:30 Ceftriaxone Sodium (Rocephin) 50 ml @ 100 mls/hr Q24H IVPB ; Start 12/29/16 at 11:00 Assessment/Plan Chief Complaint/Hosp Course 76 year old M with history of hypertension untreated, previous smoking history presenting with holo Right MCA stroke in setting of Right ICA occlusion s/p IV tPA. Mechanism likely atheroembolic. MRI shows holo Right MCA stroke involving superior and inferior division. Repeat [address] evolving right MCA stroke with residual Right M1 thrombus , involving right frontal, temporal, parietal lobe and all of basal ganglia. mild compression on right lateral ventricle no hydrocephalus Recommendations: -may maintain systolic blood pressure 140-160, permissive hypertension is acceptable in the setting of right carotid occlusion and left stenosis -if any surgical intervention is planned would wait atleast 3-5 days as he is at a high risk for herniation and hemorrhagic conversion in this acute period -continue close neuro checks q2h for herniation, monitor for decreased arousal, pupillary changes, development of RIGHT sided weakness should prompt immediate CTH -initiate ASA 300 mg NE -may continue on high dose Lipitor -daily speech evaluation, PT/OT -continue tele monitoring for afib -agree with planned transfer to [place] for further care, prefer ICU admission at [place] for close neurologic monitoring -please feel free to contact me should any questions/concerns arise, thank you for involving me in his care discussed recommendations with daughter at bedside Problems: DEONDRE MURGUIA MD Dec 29, 2016 12:14
--- NOTE | 2016-12-29 13:19 | PN ---
Date/Time of Note Date/Time of Note DATE: 12/29/16 TIME: 13:18 Assessment/Plan Lines/Catheters IV Catheter Type (from Nrs): Peripheral IV Mckeon in Place (from Nrs): No Assessment/Plan Chief Complaint/Hosp Course IMPRESSION: 1. Right internal carotid artery occlusion. 2. Acute cerebrovascular accident. RECOMMENDATIONS: Will plan for surgery at the present time. Would continue medical treatment. If no contraindication, would put the patient on heparin therapy. Problems: Subjective 24 Hr Interval Summary Constitutional: improved Pain Control: mild Exam/Review of Systems Vital Signs Vitals Vital Signs Date Time Temp Pulse Resp B/P Pulse Ox O2 Delivery O2 Flow Rate FiO2 12/29/16 12:00 105 12/29/16 07:15 Nasal Cannula 2.0 12/29/16 06:00 22 164/63 99 12/29/16 04:00 99.1 12/29/16 02:17 21 Intake and Output 12/28/16 12/28/16 12/29/16 14:59 22:59 06:59 Intake Total 450 ml 525 ml Output Total 300 ml 100 ml Balance -300 ml 450 ml 425 ml Exam ENMT: mucosa pink and moist, nl external ears & nose, nl lips & teeth, nl nasal mucosa & septum Neck: non-tender, supple Respiratory: clear to auscultation, normal air movement Cardiovascular: nl pulses, regular rate and rhythm Gastrointestinal: nl liver, spleen, non-tender, soft Results Result Diagram: 12/29/1641912/29/16419 GERSON LEWIS MD Dec 29, 2016 13:19
--- NOTE | 2016-12-29 14:40 | DS ---
DATE OF ADMISSION: 12/28/2016 DATE OF DISCHARGE: 12/29/2016 CONSULTANTS: 1. Neurology. 2. Vascular surgeon. 3. Cardiology. PROCEDURE: 1. A 2D echocardiogram, which demonstrated normal left ventricle systolic function, normal left lopez tricular cavity size, left ventricular wall thickness upper limit of normal. Ejection fraction visu ally estimated at 55%. The left atrium is a normal size. Mild mitral annular calcification. Trace mitral regurgitation. Aortic sclerosis without stenosis. OTHER STUDIES: 1. CT of the brain, which showed suspicion of acute thrombosis of the right middle cerebral artery, no acute bleed. MRI of the brain showed acute ischemic changes involving the entire right middle c erebral artery territory compatible with distribution of infarction. Within the non-infarcted area of the brain, are nonspecific small scattered area of T2 and flare signal intensity measuring a few millimeters are seen in the supratentorial white matter, most commonly due to chronic mild microvasc ular ischemic changes. Differential consideration includes sequela of migraines, prior injury from infectious versus inflammatory or demyelinating process vasculopathy. 2. Neck CTA: Acute thrombosis of right MCA with evolving infarct. Compatible occlusion of right i nternal carotid artery may be acute or older. Diffuse atherosclerotic changes. 50% stenosis of the left ICA. Head CTA acute thrombosis of the right MCA with evolving infarct. Compatible occlusion of the right internal carotid artery, which may be acute or older. Diffuse atherosclerotic changes. 3. CT of the brain to repeat on 12/29/2016: Right middle cerebral artery infarct with thrombosis o f the proximal right middle cerebral artery. Portion of the right frontal lobe. Right temporal, ri ght parietal, and right basilar ganglia area are involved. Chronic small vessel ischemic changes in the periventricular white matter in-tract adjacent to the lateral ventricles. No evidence of intra cranial hemorrhage, tentorial, or herniation. Ethmoid and sinus sinusitis. DISCHARGE DIAGNOSES: 1. Left-sided weakness secondary to acute left-sided with the right middle cerebral artery stroke. Patient is status post tPA. 2. Right carotid artery occlusion 100%. Vascular surgeon has been consulted. Patient will be trans ferred to [facility] for further evaluation and possible endarterectomy. 3. Essential hypertension, status post Cardene drip. Patient was then placed on IV metoprolol and IV hydralazine. 4. Dysphagia. Patient at this time was seen and evaluated by speech therapy and secondary to the a cute cerebrovascular accident, patient is high risk for any p.o. intake. Repeat speech evaluation a t [facility]. HOSPITAL COURSE: This is an unfortunate 76-year-old gentleman with past medical history of essentia l hypertension, who presented with a sudden onset of weakness of the left side in his upper and lowe r extremity. Also, facial droop to the left side of his face. Symptoms occurred about 10 to 20 haseeb lonny prior to admission on 12/27/2016. EMS brought the patient to the ER. Teleneurology was called immediately, and patient was considered to be inside the window. There was sign of acute stroke, and he was given a tPA. He had a CT scan of the brain, which was and showed acute thrombosis of right middle cerebral artery thrombosis, no acute bleed. He also had a neck CTA performed as well t hat showed acute complete occlusion of right internal carotid artery and 50% stenosis of the left IC A. Also attempt by the ER staff to transfer the patient to [facility] for thrombectomy, but he also was c onsidered outside the window for that. Patient as stated above was placed on tPA as per [facility] recommendations and has been admitted to ICU. He has been treated with Cardene drip secondary to hypertensive urgency. His blood pressure has bee n improving. At this time, patient has been placed on IV hydralazine and metoprolol. His antiplate let and anticoagulation was placed on hold for 24 hours secondary to patient was treated with tPA. Not being a candidate for any anticoagulation or antiplatelet secondary to he was placed on a tPA at the time of the admission. The medical management and the symptoms, and the finding of the MRI of the brain, and the CTA was explained to the patient's daughter at the bedside. The patient is a [facility] patient and is contracted with that facility. Due to this fact and for the good of [facility] patient, at this time, I strongly believe that patient should be transferred to [facility] for further evaluation and any surgical intervention. The patient will definitely need to be seen a nd evaluated by neurology, vascular surgeon, and physical therapy and speech [facility]. CONDITION AT TIME OF DISCHARGE: Guarded. Dictated By: ISA DE JESUS/NTS Conf#: [id number] [facility]#: [id number]
== END 2016-12-29 22:16 | disposition short-term general hospital (02) | DRG 62 ==
LOC: E/R 23:32 → EDSEX 23:32 → ICU 12-28 08:30
PROVIDERS: ADMIT Family Medicine; ATTEND Family Medicine
DX: I63.311 Cerebral infarction due to thrombosis of right middle cerebral artery (principal); G81.94 Hemiplegia, unspecified affecting left nondominant side; R29.810 Facial weakness; I10 Essential (primary) hypertension; R13.10 Dysphagia, unspecified; I65.23 Occlusion and stenosis of bilateral carotid arteries; Z87.891 Personal history of nicotine dependence; Z91.14 Patient's other noncompliance with medication regimen
CPT/HCPCS: 36415; 70450; 70496; 70498; 70551; 71010; 80048; 80053; 80061; 80307; 81001; 81003; 82962; 83036; 83735; 84100; 84439; 84443; 84484; 85025; 85610; 85730; 87081; 87086; 93005; 93306; 96374; 96375; 96376; J0360; J0696; J1815; J2060; J2270; J2405; J2765; J2997; J7040; Q9967